=== PATIENT | male | born 1995 | race Caucasian/White ===

== ENCOUNTER 2018-03-17 02:59 | Emergency (ER) | payer OTHER ==
[2018-03-17] MEDS: CORTISPORIN OTIC SOLN 10 ML BTL AS (05:30)
== END 2018-03-17 06:03 | disposition home or self-care (01) ==
LOC: M ED 02:59
DX: H60.92 Unspecified otitis externa, left ear (principal); Z87.891 Personal history of nicotine dependence
CPT/HCPCS: 99283